=== PATIENT | male | born 1950 | race Caucasian/White ===

== ENCOUNTER → 2020-09-18 11:16 | Outpatient (CLI) | payer MEDICARE, SELFPAY ==
--- NOTE | 2020-09-18 | DI.RAD.S_ITS ---
PROCEDURE: FL BARIUM SWALLOW INDICATIONS: DYSPHAGIA COMPARISON: None. FINDINGS: The examination is limited because of the patient's condition. Patient was unable to tolerate standing or in supine position. Examination was performed in 45 degree oblique semi upright position. There is segmental narrowing of the distal esophagus at the gastroesophageal junction causing partial obstruction. Proximal esophagus is dilated. Oral contrast was able to pass through the distal esophagus. There is moderate esophageal dysmotility. No gastroesophageal reflux is elicited during the examination. A calibrated barium tablet was not given (the patient stated that he was unable to tolerate pills at home). No extrinsic mass effects or diverticula. Limited images of the stomach demonstrate normal appearance. IMPRESSION: 1. There is partial esophageal obstruction of thin and thick barium suspension secondary to segmental narrowing of the distal esophagus at the gastroesophageal junction. Proximal esophagus is dilated secondary to partial obstruction. Differential diagnosis include stricture versus obstructive mass. Recommend upper endoscopy for further evaluation. 2. Moderate esophageal dysmotility. Dictated by: Andrew Mcintosh M.D. on 09/18/2020 at 12:35 Approved by: Andrew Mcintosh M.D. on 09/18/2020 at 12:41
== END ==
PROVIDERS: PCP Internal Medicine; Referring Provider Internal Medicine; Visit Provider Internal Medicine
DX: R13.10 Dysphagia, unspecified (principal); K22.2 Esophageal obstruction; K22.8 Other specified diseases of esophagus
CPT/HCPCS: 74220